=== PATIENT | female | born 1935 | race Caucasian/White ===

== ENCOUNTER 2019-04-23 20:32 | Observation (INO) ==
[2019-04-23 22:40] LABS: Prothrombin Time 11.9 Seconds (9.4-12.1)
[2019-04-23 22:49] LABS: Basophils % 0.5 %; Eosinophils # 0.2 K/mcL (0.0-0.6); Eosinophils % 2.4 %; Hematocrit 37.9 % (35.3-44.9); Hemoglobin 13.1 g/dL (11.5-15.4); Immature Granulocytes % 0.1 % (0-4); Lymphocytes # 2.4 K/mcL (0.6-4.6); Lymphocytes % 31.1 %; Mean Corpuscular HGB Conc 34.6 g/dL (31.6-35.5); Mean Corpuscular Hemoglobin 31.6 pg (28.0-33.3); Mean Corpuscular Volume 91.5 fL (83.0-100.0); Mean Platelet Volume 10.6 fL (9.4-12.4); Monocytes # 0.7 K/mcL (0.0-1.3); Monocytes % 9.3 %; Neutrophils # 4.4 K/mcL (1.6-8.9); Platelet Count 220 K/mcL (140-400); Red Blood Count 4.14 M/mcL (3.82-4.97); Red Cell Distribution Width 13.2 % (11.5-14.5); Segmented Neutrophils % 56.6 %; White Blood Count 7.8 K/mcL (4.3-11.1)
[2019-04-23 22:58] LABS: Alanine Aminotransferase 17 Units/L (7-52); Albumin 4.1 g/dL (3.5-5.7); Albumin/Globulin Ratio 1.5 (1.1-2.2); Alkaline Phosphatase 59 Units/L (34-104); Aspartate Amino Transferase 18 Units/L (13-39); BUN/Creatinine Ratio 27 (6-26); Bilirubin,Direct 0.1 mg/dL (0.0-0.2); Bilirubin,Indirect 0.2 mg/dL (0.0-1.0); Bilirubin,Total 0.3 mg/dL (0.3-1.0); Blood Urea Nitrogen 17 mg/dL (8-23); Calcium 10.1 mg/dL (8.6-10.3); Carbon Dioxide 22 mEq/L (23-29); Chloride 112 mEq/L (98-107); Creatine Kinase 353 Units/L (30-223); Globulin 2.7 g/dL (2.4-3.5); Glucose 134 mg/dL (70-105); Lipase 17 Units/L (11-82); Magnesium 1.9 mg/dL (1.6-2.6); Osmolality,Calculated 298 (280-300); Potassium 3.4 mEq/L (3.5-5.1); Sodium 142 mEq/L (136-145); Total Protein 6.8 g/dL (6.4-8.9); Troponin I < 0.03 ng/mL (< 0.04); eGFR For African Americans > 60 (> 60); eGFR For Non-African Americans > 60 (> 60)
[2019-04-23 23:42] LABS: Bilirubin,Urine Negative (Negative); Blood,Urine Negative (Negative); Clarity,Urine Clear (Clear); Color,Urine Yellow (Yellow); Glucose,Urine (UA) Normal (Normal); Ketones,Urine Negative (Negative); Leukocyte Esterase,Urine Large (Negative); Nitrite,Urine Negative (Negative); Protein,Urine Negative (Neg-Trace); Urobilinogen,Urine Normal (Normal)
[2019-04-23 23:45] LABS: Bacteria,Urine None Seen per hpf (None-Few); Hyaline Casts,Urine None Seen per lpf (None-Few); RBC,Urine 0-3 per hpf (0-3); Squamous Epithelial Cell,Urine Many per lpf (None-Few)
[2019-04-24] MEDS ORDERED: Naloxone 0.4 MG/ML INJ IVP PRN (07:43)
[2019-04-24] MEDS ORDERED: Ringers Solution, Lactated 1,000 ML IVC SCH (08:00)
[2019-04-24] MEDS: Acetaminophen 650 MG RECTAL SUPP RC PRN ×2 (09:07→22:03)
[2019-04-24] MEDS: Lactulose Oral Soln 20 GM/30 ML UDC PO SCH ×2 (09:28→22:03)
[2019-04-24] MEDS: amLODIPine 5 MG TABLET PO SCH (09:28)
[2019-04-24] MEDS: cefTRIAXone 1,000 MG in Water for inj. (sterile) 10 ML IVP SCH (09:29)
[2019-04-24 14:56] LABS: Folate 18.8 ng/mL (3.0-16.0)
[2019-04-24] MEDS: *HR* Heparin 5,000 UNIT/ML VIAL SQ SCH (18:09)
[2019-04-24] MEDS ORDERED: Gadolinium Contrast Agent (WT Based) IV PRN (18:34)
[2019-04-24] MEDS ORDERED: Mirtazapine 15 MG TABLET PO SCH (21:00)
[2019-04-25] MEDS: *HR* Heparin 5,000 UNIT/ML VIAL SQ SCH (05:59)
[2019-04-25 07:23] VITALS: BP 104/64
[2019-04-25] MEDS ORDERED: tiZANidine 4 MG TABLET PO PRN (07:31)
[2019-04-25] MEDS ORDERED: Baclofen 10 MG TABLET PO PRN (07:31)
[2019-04-25] MEDS ORDERED: Aspirin Enteric Coated 81 MG Tablet PO SCH (09:00)
[2019-04-25] MEDS: Lactulose Oral Soln 20 GM/30 ML UDC PO SCH (09:43)
[2019-04-25] MEDS: cefTRIAXone 1,000 MG in Water for inj. (sterile) 10 ML IVP SCH (09:43)
[2019-04-25] MEDS: amLODIPine 5 MG TABLET PO SCH (09:47)
[2019-04-25 10:25] LABS: Basophils # 0.1 K/mcL (0.0-0.2); Basophils % 0.9 %; Eosinophils # 0.2 K/mcL (0.0-0.6); Eosinophils % 3.6 %; Hematocrit 39.6 % (35.3-44.9); Hemoglobin 13.2 g/dL (11.5-15.4); Immature Granulocytes % 0.2 % (0-4); Lymphocytes % 33.4 %; Mean Corpuscular HGB Conc 33.3 g/dL (31.6-35.5); Mean Corpuscular Hemoglobin 31.9 pg (28.0-33.3); Mean Corpuscular Volume 95.7 fL (83.0-100.0); Mean Platelet Volume 10.6 fL (9.4-12.4); Monocytes # 0.5 K/mcL (0.0-1.3); Monocytes % 9.3 %; Neutrophils # 3.1 K/mcL (1.6-8.9); Platelet Count 208 K/mcL (140-400); Red Blood Count 4.14 M/mcL (3.82-4.97); Red Cell Distribution Width 13.3 % (11.5-14.5); Segmented Neutrophils % 52.6 %; White Blood Count 5.8 K/mcL (4.3-11.1)
[2019-04-25 10:27] LABS: Estimated Average Glucose 120 mg/dl
[2019-04-25 10:45] LABS: Chol/HDL Ratio 3.1 (0-4.9)
[2019-04-25 10:46] LABS: BUN/Creatinine Ratio 16 (6-26); Blood Urea Nitrogen 13 mg/dL (8-23); Carbon Dioxide 22 mEq/L (23-29); Chloride 109 mEq/L (98-107); Glucose 117 mg/dL (70-105); Osmolality,Calculated 295 (280-300); Phosphorous 3.3 mg/dL (2.7-4.5); Potassium 3.8 mEq/L (3.5-5.1); Sodium 142 mEq/L (136-145); eGFR For African Americans > 60 (> 60); eGFR For Non-African Americans > 60 (> 60)
[2019-04-25 10:58] LABS: Thyroid Stimulating Hormone 2.753 mcIU/mL (0.340-5.600)
[2019-04-26 07:42] LABS: ANA IgG by ELISA NONE DETECTED (None Detected)
[2019-04-27 01:15] LABS: Alpha 2 Globulin (PEP) 0.81 g/dL (0.48-1.05); Alpha 2 Globulin (PEP) 0.83 g/dL (0.48-1.05); Beta Globulin (PEP) 0.84 g/dL (0.48-1.10); Beta Globulin (PEP) 0.88 g/dL (0.48-1.10)
[2019-04-27 08:16] LABS: IFE Reflexed NOT DONE
== END 2019-04-25 17:39 | disposition home or self-care (01) ==
LOC: 3ANU 20:32 → EMEROOARM 20:32 → SUATTDRO 04-24 02:55 → 3ANU 04-24 03:13
PROVIDERS: ADMIT Internal Medicine; ATTEND Internal Medicine

== ENCOUNTER 2020-01-29 13:41 | Observation (INO) ==
[2020-01-29 14:54] LABS: Bilirubin,Urine Negative (Negative); Blood,Urine Negative (Negative); Clarity,Urine Clear (Clear); Color,Urine Colorless (Yellow); Glucose,Urine (UA) Normal (Normal); Ketones,Urine Negative (Negative); Leukocyte Esterase,Urine Negative (Negative); Nitrite,Urine Negative (Negative); PH,Urine 6.5 pH Units (5.0-8.0); Protein,Urine Negative (Neg-Trace); Urobilinogen,Urine Normal (Normal)
[2020-01-29 15:03] LABS: Hematocrit 40.2 % (35.3-44.9); Mean Corpuscular HGB Conc 32.3 g/dL (31.6-35.5); Mean Corpuscular Volume 95.7 fL (83.0-100.0); Mean Platelet Volume 10.3 fL (9.4-12.4); Platelet Count 220 K/mcL (140-400); Red Cell Distribution Width 13.1 % (11.5-14.5); White Blood Count 7.8 K/mcL (4.3-11.1)
[2020-01-29 15:24] LABS: Alanine Aminotransferase 14 Units/L (7-52); Albumin 4.5 g/dL (3.5-5.7); Albumin/Globulin Ratio 1.5 (1.1-2.2); Alkaline Phosphatase 48 Units/L (34-104); Aspartate Amino Transferase 20 Units/L (13-39); BUN/Creatinine Ratio 22 (6-26); Bilirubin,Direct 0.1 mg/dL (0.0-0.2); Bilirubin,Indirect 0.4 mg/dL (0.0-1.0); Bilirubin,Total 0.5 mg/dL (0.3-1.0); Blood Urea Nitrogen 14 mg/dL (8-23); Calcium 10.6 mg/dL (8.6-10.3); Carbon Dioxide 27 mEq/L (23-29); Chloride 109 mEq/L (98-107); Glucose 81 mg/dL (70-105); Osmolality,Calculated 294 (280-300); Potassium 4.2 mEq/L (3.5-5.1); Sodium 142 mEq/L (136-145); Total Protein 7.5 g/dL (6.4-8.9); eGFR For African Americans > 60 (> 60); eGFR For Non-African Americans > 60 (> 60)
[2020-01-29] MEDS ORDERED: *HR* HYDROcodone/Acet 5/325 mg TABLET PO PRN (17:19)
[2020-01-29] MEDS ORDERED: Naloxone 0.4 MG/ML INJ IVP PRN (17:19)
[2020-01-29] MEDS ORDERED: *HR* OxyCODONE Immed Rel 5 MG TABLET PO PRN (17:19)
[2020-01-29 18:24] LABS: Creatine Kinase 282 Units/L (30-223)
[2020-01-29] MEDS: Mirtazapine 15 MG TABLET PO SCH (20:20)
[2020-01-30 02:37] LABS: Basophils % 0.5 %; Eosinophils # 0.1 K/mcL (0.0-0.6); Eosinophils % 1.6 %; Hematocrit 36.5 % (35.3-44.9); Immature Granulocytes % 0.1 % (0-4); Lymphocytes # 3.3 K/mcL (0.6-4.6); Lymphocytes % 45.3 %; Mean Corpuscular HGB Conc 32.9 g/dL (31.6-35.5); Mean Corpuscular Hemoglobin 30.8 pg (28.0-33.3); Mean Corpuscular Volume 93.8 fL (83.0-100.0); Mean Platelet Volume 10.2 fL (9.4-12.4); Monocytes # 0.6 K/mcL (0.0-1.3); Monocytes % 8.7 %; Neutrophils # 3.2 K/mcL (1.6-8.9); Platelet Count 203 K/mcL (140-400); Red Blood Count 3.89 M/mcL (3.82-4.97); Red Cell Distribution Width 12.9 % (11.5-14.5); Segmented Neutrophils % 43.8 %; White Blood Count 7.3 K/mcL (4.3-11.1)
[2020-01-30 02:57] LABS: BUN/Creatinine Ratio 21 (6-26); Blood Urea Nitrogen 15 mg/dL (8-23); Carbon Dioxide 26 mEq/L (23-29); Chloride 108 mEq/L (98-107); Glucose 96 mg/dL (70-105); Osmolality,Calculated 293 (280-300); Potassium 3.9 mEq/L (3.5-5.1); Sodium 141 mEq/L (136-145); eGFR For African Americans > 60 (> 60); eGFR For Non-African Americans > 60 (> 60)
[2020-01-30] MEDS: amLODIPine 5 MG TABLET PO SCH (08:51)
[2020-01-30 19:23] LABS: Folate 14.1 ng/mL (3.0-16.0)
[2020-01-30] MEDS: Mirtazapine 15 MG TABLET PO SCH (19:57)
[2020-01-31 01:19] LABS: Basophils % 0.4 %; Eosinophils # 0.1 K/mcL (0.0-0.6); Eosinophils % 1.5 %; Hematocrit 34.5 % (35.3-44.9); Hemoglobin 11.5 g/dL (11.5-15.4); Immature Granulocytes % 0.3 % (0-4); Lymphocytes # 3.1 K/mcL (0.6-4.6); Lymphocytes % 39.7 %; Mean Corpuscular HGB Conc 33.3 g/dL (31.6-35.5); Mean Corpuscular Volume 96.1 fL (83.0-100.0); Mean Platelet Volume 10.1 fL (9.4-12.4); Monocytes # 0.7 K/mcL (0.0-1.3); Monocytes % 8.3 %; Neutrophils # 3.9 K/mcL (1.6-8.9); Platelet Count 193 K/mcL (140-400); Red Blood Count 3.59 M/mcL (3.82-4.97); Segmented Neutrophils % 49.8 %; White Blood Count 7.9 K/mcL (4.3-11.1)
[2020-01-31 01:41] LABS: BUN/Creatinine Ratio 28 (6-26); Blood Urea Nitrogen 28 mg/dL (8-23); Calcium 9.8 mg/dL (8.6-10.3); Carbon Dioxide 25 mEq/L (23-29); Chloride 110 mEq/L (98-107); Glucose 120 mg/dL (70-105); Osmolality,Calculated 295 (280-300); Potassium 3.8 mEq/L (3.5-5.1); Sodium 139 mEq/L (136-145); eGFR For African Americans > 60 (> 60); eGFR For Non-African Americans 53 (> 60)
[2020-01-31] MEDS ORDERED: *HR* Enoxaparin 40 MG/0.4 ML SYRINGE SQ SCH (06:00)
[2020-01-31] MEDS: amLODIPine 5 MG TABLET PO SCH (08:23)
[2020-01-31] MEDS: Acetaminophen 325 MG TABLET PO PRN (08:25)
[2020-01-31] MEDS: Mirtazapine 15 MG TABLET PO SCH (21:29)
[2020-02-01] MEDS: *HR* Enoxaparin 30 MG/0.3 ML SYRINGE SQ SCH ×2 (05:51→06:24)
[2020-02-01] MEDS: methocarbamoL 500 MG TABLET PO ONE ×2 (06:06→09:40)
[2020-02-01 08:00] LABS: BUN/Creatinine Ratio 29 (6-26); Blood Urea Nitrogen 19 mg/dL (8-23); Calcium 9.9 mg/dL (8.6-10.3); Carbon Dioxide 24 mEq/L (23-29); Chloride 112 mEq/L (98-107); Glucose 91 mg/dL (70-105); Osmolality,Calculated 294 (280-300); Potassium 3.8 mEq/L (3.5-5.1); Sodium 141 mEq/L (136-145); eGFR For African Americans > 60 (> 60); eGFR For Non-African Americans > 60 (> 60)
[2020-02-01] MEDS: Acetaminophen 325 MG TABLET PO PRN ×3 (09:30→21:43)
[2020-02-01] MEDS: amLODIPine 5 MG TABLET PO SCH (09:30)
[2020-02-01] MEDS ORDERED: Cyanocobalamin (B-12) 1,000 MCG/ML VIAL IM ONE (09:31)
[2020-02-01] MEDS: Mirtazapine 15 MG TABLET PO SCH (21:44)
[2020-02-02 02:21] LABS: BUN/Creatinine Ratio 26 (6-26); Blood Urea Nitrogen 18 mg/dL (8-23); Calcium 9.4 mg/dL (8.6-10.3); Carbon Dioxide 23 mEq/L (23-29); Chloride 111 mEq/L (98-107); Glucose 83 mg/dL (70-105); Osmolality,Calculated 291 (280-300); Sodium 140 mEq/L (136-145); eGFR For African Americans > 60 (> 60); eGFR For Non-African Americans > 60 (> 60)
[2020-02-02] MEDS: *HR* Enoxaparin 30 MG/0.3 ML SYRINGE SQ SCH (05:19)
[2020-02-02] MEDS: amLODIPine 5 MG TABLET PO SCH (08:45)
[2020-02-02] MEDS: Acetaminophen 325 MG TABLET PO PRN ×2 (08:50→22:14)
[2020-02-02] MEDS: Mirtazapine 15 MG TABLET PO SCH (22:14)
[2020-02-03] MEDS: *HR* Enoxaparin 30 MG/0.3 ML SYRINGE SQ SCH (06:21)
[2020-02-03] MEDS: amLODIPine 5 MG TABLET PO SCH (08:07)
[2020-02-03] MEDS: Mirtazapine 15 MG TABLET PO SCH (20:35)
[2020-02-03] MEDS: Acetaminophen 325 MG TABLET PO PRN (20:40)
[2020-02-04] MEDS: *HR* Enoxaparin 30 MG/0.3 ML SYRINGE SQ SCH (05:48)
[2020-02-04] MEDS: amLODIPine 5 MG TABLET PO SCH (08:20)
[2020-02-04] MEDS: Acetaminophen 325 MG TABLET PO PRN (12:06)
[2020-02-04 16:15] VITALS: BP 122/72
[2020-02-04 17:34] LABS: Adenovirus Not Detected (Not Detect); Bordetella Pertussis Not Detected (Not Detect); Chlamydophila pneumoniae Not Detected (Not Detect); Coronavirus 229E Not Detected (Not Detect); Coronavirus HKU1 Not Detected (Not Detect); Coronavirus NL63 Not Detected (Not Detect); Coronavirus OC43 Not Detected (Not Detect); Human Metapneumovirus Not Detected (Not Detect); Human Rhinovirus/Enterovirus DETECTED (Not Detect); Influenza A Subtype 2009 H1 Not Detected (Not Detect); Influenza B Not Detected (Not Detect); Mycoplasma pneumoniae Not Detected (Not Detect); Parainfluenza Virus 1 Not Detected (Not Detect); Parainfluenza Virus 2 Not Detected (Not Detect); Parainfluenza Virus 3 Not Detected (Not Detect); Parainfluenza Virus 4 Not Detected (Not Detect); Respiratory Syncytial Virus Not Detected (Not Detect); SARS-CoV-2 Not Detected (Not Detect)
[2020-02-05 12:07] LABS: Purkinje Cell/ANNA IgG Scrn NONE DETECTED (None Detected)
== END 2020-02-04 19:02 ==
LOC: EMEROOARM 13:41 → 3BNU 13:41 → SUATTDRO 16:07 → 3BNU 17:40
PROVIDERS: ADMIT Internal Medicine; ATTEND Student in an Organized Health Care Education/Training Program

== ENCOUNTER 2021-08-10 23:29 | Inpatient (IN) ==
[2021-08-11 00:43] LABS: Creatine Kinase 272 Units/L (30-223)
[2021-08-11] MEDS ORDERED: Melatonin 3 MG TABLET PO PRN ×2 (01:35→16:16)
[2021-08-11] MEDS ORDERED: Ondansetron 4 MG/2 ML VIAL IVP PRN ×3 (01:35→16:16)
[2021-08-11] MEDS ORDERED: Acetaminophen 325 MG TABLET PO PRN (01:35)
[2021-08-11] MEDS ORDERED: Naloxone 0.4 MG/ML INJ IVP PRN ×2 (01:35→16:16)
[2021-08-11] MEDS ORDERED: Saliva Stimulant 44.3ml BOTTLE PO PRN ×2 (01:38→16:16)
[2021-08-11] MEDS ORDERED: D5% in Water 1,000 ML IVC PRN ×2 (01:39→16:16)
[2021-08-11] MEDS ORDERED: *HR* Dextrose 50 % in Water (Syg) 50 ML SYRINGE IVP PRN ×2 (01:39→16:16)
[2021-08-11] MEDS ORDERED: Dextrose 4 GM Chewable Tablets PO PRN ×4 (01:39→16:16)
[2021-08-11 01:45] LABS: BUN/Creatinine Ratio 15 (6-26); Blood Urea Nitrogen 9 mg/dL (8-23); Calcium 10.1 mg/dL (8.6-10.3); Carbon Dioxide 22 mEq/L (23-29); Chloride 108 mEq/L (98-107); Glucose 191 mg/dL (70-105); Magnesium 1.9 mg/dL (1.6-2.6); Osmolality,Calculated 296 (280-300); Phosphorous 2.1 mg/dL (2.7-4.5); Potassium 3.5 mEq/L (3.5-5.1); Sodium 141 mEq/L (136-145); eGFR For African Americans > 60 (> 60); eGFR For Non-African Americans > 60 (> 60)
[2021-08-11] MEDS ORDERED: 0.9 % Sodium Chloride 1,000 ML IVC SCH (01:45)
[2021-08-11 01:53] LABS: Basophils % 0.3 %; Eosinophils % 0.3 %; Hematocrit 33.7 % (35.3-44.9); Immature Granulocytes % 0.5 % (0-4); Lymphocytes # 1.3 K/mcL (0.6-4.6); Lymphocytes % 11.2 %; Mean Corpuscular HGB Conc 32.6 g/dL (31.6-35.5); Mean Corpuscular Hemoglobin 31.7 pg (28.0-33.3); Mean Corpuscular Volume 97.1 fL (83.0-100.0); Mean Platelet Volume 10.6 fL (9.4-12.4); Monocytes # 0.7 K/mcL (0.0-1.3); Neutrophils # 9.7 K/mcL (1.6-8.9); Platelet Count 220 K/mcL (140-400); Red Blood Count 3.47 M/mcL (3.82-4.97); Segmented Neutrophils % 81.7 %; White Blood Count 11.9 K/mcL (4.3-11.1)
[2021-08-11 02:33] LABS: INR 1.1; Prothrombin Time 12.7 Seconds (9.4-12.1)
[2021-08-11 02:36] LABS: Activated Partial Thrombo Time 27.4 Seconds (26.0-36.0)
[2021-08-11 05:40] LABS: % Iron Saturation 9 % (15-50); Iron 31 mcg/dL (50-170); Transferrin 244 mg/dL (203-362)
[2021-08-11 05:52] LABS: Bilirubin,Urine Negative (Negative); Blood,Urine Negative (Negative); Clarity,Urine Clear (Clear); Color,Urine Light-Yellow (Yellow); Glucose,Urine (UA) Normal (Normal); Ketones,Urine Negative (Negative); Leukocyte Esterase,Urine Negative (Negative); Nitrite,Urine Negative (Negative); PH,Urine 6.5 pH Units (5.0-8.0); Protein,Urine Negative (Neg-Trace); Specific Gravity,Urine 1.015 (1.010-1.025); Urobilinogen,Urine Normal (Normal)
[2021-08-11 05:59] LABS: Ferritin 184 ng/mL (10-120)
[2021-08-11 06:04] LABS: Folate 15.5 ng/mL (3.0-16.0)
[2021-08-11] MEDS ORDERED: amLODIPine 5 MG TABLET PO SCH (09:00)
[2021-08-11] MEDS ORDERED: Multivit/Ca/Min/Fe/FA 1 TAB TABLET PO SCH (09:00)
[2021-08-11] MEDS ORDERED: CeFAZolin Syr 2,000MG/20 ML 2,000 MG/20 ML SYRINGE IVPB ONE ×2 (14:03→16:16)
[2021-08-11] MEDS ORDERED: Lidocaine -MPF 4% 5 ML AMPUL ONE (14:06)
[2021-08-11] MEDS ORDERED: Ondansetron 4 MG/2 ML VIAL ONE (14:06)
[2021-08-11] MEDS ORDERED: *HR* Propofol 200 MG/20 ML VIAL IVP ONE (14:06)
[2021-08-11] MEDS ORDERED: Lidocaine -MPF 2% 2 ML VIAL ONE (14:06)
[2021-08-11] MEDS ORDERED: *HR* FentaNYL (PF) 100 MCG/2 ML VIAL ONE (14:06)
[2021-08-11] MEDS ORDERED: Ringers Solution, Lactated 1,000 ML IVC SCH ×2 (14:15→16:16)
[2021-08-11] MEDS ORDERED: Acetaminophen IV 1,000 MG/100 ML BAG IVPB ONE (14:57)
[2021-08-11] MEDS: Sennosides/Docusate Sodium TABLET PO SCH (19:45)
[2021-08-11] MEDS: 0.9 % Sodium Chloride 1,000 ML IVC SCH (19:45)
[2021-08-11] MEDS: Mirtazapine 15 MG TABLET PO SCH (19:45)
[2021-08-11] MEDS ORDERED: Sennosides/Docusate Sodium TABLET PO SCH (21:00)
[2021-08-11] MEDS ORDERED: Mirtazapine 15 MG TABLET PO SCH ×2 (21:00)
[2021-08-11] MEDS: CeFAZolin 2 GM/120 ML BAG IVPB SCH (21:36)
[2021-08-12] MEDS: CeFAZolin 2 GM/120 ML BAG IVPB SCH (05:59)
[2021-08-12] MEDS ORDERED: *HR* Enoxaparin 30 MG/0.3 ML SYRINGE SQ SCH (06:00)
[2021-08-12] MEDS ORDERED: *HR* Enoxaparin 40 MG/0.4 ML SYRINGE SQ SCH ×2 (06:00)
[2021-08-12 07:00] LABS: Basophils % 0.1 %; Hematocrit 24.8 % (35.3-44.9); Hemoglobin 8.2 g/dL (11.5-15.4); Immature Granulocytes % 0.3 % (0-4); Lymphocytes # 1.2 K/mcL (0.6-4.6); Lymphocytes % 12.1 %; Mean Corpuscular HGB Conc 33.1 g/dL (31.6-35.5); Mean Corpuscular Hemoglobin 31.8 pg (28.0-33.3); Mean Corpuscular Volume 96.1 fL (83.0-100.0); Mean Platelet Volume 10.7 fL (9.4-12.4); Monocytes % 9.9 %; Neutrophils # 7.8 K/mcL (1.6-8.9); Platelet Count 162 K/mcL (140-400); Red Blood Count 2.58 M/mcL (3.82-4.97); Red Cell Distribution Width 13.2 % (11.5-14.5); Segmented Neutrophils % 77.6 %; White Blood Count 10.1 K/mcL (4.3-11.1)
[2021-08-12 07:19] LABS: BUN/Creatinine Ratio 18 (6-26); Blood Urea Nitrogen 12 mg/dL (8-23); Calcium 9.1 mg/dL (8.6-10.3); Carbon Dioxide 25 mEq/L (23-29); Chloride 106 mEq/L (98-107); Glucose 151 mg/dL (70-105); Osmolality,Calculated 293 (280-300); Potassium 3.7 mEq/L (3.5-5.1); Sodium 140 mEq/L (136-145); eGFR For African Americans > 60 (> 60); eGFR For Non-African Americans > 60 (> 60)
[2021-08-12] MEDS: polyethylene glycoL 3350 17 GM POWD.PACK PO SCH (08:44)
[2021-08-12] MEDS: Iron Sucrose Complex 200 MG in 0.9 % Sodium Chloride 100 ML IVPB SCH (08:44)
[2021-08-12] MEDS: amLODIPine 5 MG TABLET PO SCH (08:44)
[2021-08-12] MEDS: Multivit/Ca/Min/Fe/FA 1 TAB TABLET PO SCH (08:44)
[2021-08-12] MEDS: Sennosides/Docusate Sodium TABLET PO SCH ×2 (08:44→20:58)
[2021-08-12] MEDS ORDERED: Aspirin Enteric Coated 325 MG Tablet PO SCH (09:00)
[2021-08-12] MEDS ORDERED: polyethylene glycoL 3350 17 GM POWD.PACK PO SCH (09:00)
[2021-08-12 14:00] LABS: Hemoglobin 7.9 g/dL (11.5-15.4)
[2021-08-12] MEDS: Aspirin Enteric Coated 325 MG Tablet PO SCH (17:39)
[2021-08-12] MEDS: Mirtazapine 15 MG TABLET PO SCH (20:58)
[2021-08-12 21:17] LABS: Hemoglobin 7.8 g/dL (11.5-15.4)
[2021-08-12 21:19] LABS: Hematocrit 23.6 % (35.3-44.9)
[2021-08-13 05:35] LABS: Hematocrit 20.9 % (35.3-44.9)
[2021-08-13] MEDS: amLODIPine 5 MG TABLET PO SCH (10:26)
[2021-08-13] MEDS: Iron Sucrose Complex 200 MG in 0.9 % Sodium Chloride 100 ML IVPB SCH (10:26)
[2021-08-13] MEDS: polyethylene glycoL 3350 17 GM POWD.PACK PO SCH (10:26)
[2021-08-13] MEDS: Sennosides/Docusate Sodium TABLET PO SCH ×2 (10:26→20:30)
[2021-08-13] MEDS: Multivit/Ca/Min/Fe/FA 1 TAB TABLET PO SCH (10:26)
[2021-08-13 13:16] LABS: Hematocrit 22.3 % (35.3-44.9); Hemoglobin 7.4 g/dL (11.5-15.4)
[2021-08-13 14:22] LABS: Bacteria,Urine Few per hpf (None-Few); Bilirubin,Urine Negative (Negative); Blood,Urine Negative (Negative); Clarity,Urine Clear (Clear); Color,Urine Light-Yellow (Yellow); Glucose,Urine (UA) Normal (Normal); Ketones,Urine Negative (Negative); Leukocyte Esterase,Urine Small (Negative); Mucus,Urine Few per lpf (None-Few); Nitrite,Urine Negative (Negative); Protein,Urine Negative (Neg-Trace); RBC,Urine 0-3 per hpf (0-3); Specific Gravity,Urine 1.011 (1.010-1.025); Urobilinogen,Urine Normal (Normal)
[2021-08-13] MEDS: Aspirin Enteric Coated 325 MG Tablet PO SCH (16:39)
[2021-08-13] MEDS: Acetaminophen 325 MG TABLET PO PRN (16:40)
[2021-08-13] MEDS: 0.9 % Sodium Chloride 1,000 ML IVC SCH (20:20)
[2021-08-13] MEDS: Mirtazapine 15 MG TABLET PO SCH (20:30)
[2021-08-14 04:50] LABS: Hematocrit 20.2 % (35.3-44.9); Hemoglobin 6.7 g/dL (11.5-15.4)
[2021-08-14] MEDS ORDERED: 0.9 % Sodium Chloride 250 ML IVC SCH (05:30)
[2021-08-14] MEDS: Sennosides/Docusate Sodium TABLET PO SCH ×2 (09:33→20:18)
[2021-08-14] MEDS: polyethylene glycoL 3350 17 GM POWD.PACK PO SCH (09:33)
[2021-08-14] MEDS: Multivit/Ca/Min/Fe/FA 1 TAB TABLET PO SCH (09:33)
[2021-08-14] MEDS: amLODIPine 5 MG TABLET PO SCH (09:34)
[2021-08-14 11:53] LABS: Hematocrit 31.9 % (35.3-44.9)
[2021-08-14 11:54] LABS: Hemoglobin 10.6 g/dL (11.5-15.4)
[2021-08-14] MEDS: Acetaminophen 325 MG TABLET PO PRN (12:45)
[2021-08-14] MEDS: Aspirin Enteric Coated 325 MG Tablet PO SCH (18:51)
[2021-08-14] MEDS: Mirtazapine 15 MG TABLET PO SCH (20:19)
[2021-08-14 21:02] LABS: Hematocrit 29.5 % (35.3-44.9); Hemoglobin 9.9 g/dL (11.5-15.4)
[2021-08-15 06:13] LABS: Hematocrit 27.9 % (35.3-44.9); Hemoglobin 9.6 g/dL (11.5-15.4)
[2021-08-15 06:39] VITALS: O2SAT 98
[2021-08-15] MEDS: Multivit/Ca/Min/Fe/FA 1 TAB TABLET PO SCH (09:18)
[2021-08-15] MEDS: Sennosides/Docusate Sodium TABLET PO SCH (09:19)
[2021-08-15] MEDS: polyethylene glycoL 3350 17 GM POWD.PACK PO SCH (09:19)
[2021-08-15] MEDS: amLODIPine 5 MG TABLET PO SCH (09:19)
[2021-08-15 15:33] VITALS: BP 116/68; PULSE 87; TEMP 98.2
[2021-08-15 17:08] LABS: Adenovirus Not Detected (Not Detect); Bordetella Pertussis Not Detected (Not Detect); Chlamydophila pneumoniae Not Detected (Not Detect); Coronavirus 229E Not Detected (Not Detect); Coronavirus HKU1 Not Detected (Not Detect); Coronavirus NL63 Not Detected (Not Detect); Coronavirus OC43 Not Detected (Not Detect); Human Metapneumovirus Not Detected (Not Detect); Human Rhinovirus/Enterovirus Not Detected (Not Detect); Influenza A Subtype 2009 H1 Not Detected (Not Detect); Influenza B Not Detected (Not Detect); Mycoplasma pneumoniae Not Detected (Not Detect); Parainfluenza Virus 1 Not Detected (Not Detect); Parainfluenza Virus 2 Not Detected (Not Detect); Parainfluenza Virus 3 Not Detected (Not Detect); Parainfluenza Virus 4 Not Detected (Not Detect); Respiratory Syncytial Virus Not Detected (Not Detect); SARS-CoV-2 Not Detected (Not Detect)
[2021-08-15] MEDS: Aspirin Enteric Coated 325 MG Tablet PO SCH (17:54)
== END 2021-08-15 19:37 | DRG 481 ==
LOC: EMEROOARM 23:29 → 4WAOSI 23:29 → SUATTDRO 08-11 01:38 → 4WAOSI 08-11 02:26
PROVIDERS: ADMIT Internal Medicine; ATTEND Internal Medicine